=== PATIENT | female | born 1990 | race Caucasian/White ===

== ENCOUNTER 2016-09-14 13:00 | Inpatient (IN) | payer OTHER ==
[~2016-09-14] VITALS: Ht 172.7 cm; Wt 70.3 kg
--- NOTE | ~2016-09-14 | PA ---
Unit #: [id number] #: [id number] Patient: RONNELL ESTRADA [id number] [place] [address] [id number] MR#: [id number] NAME: RONNELL ESTRADA ROOM: [facility] Age: 26 Sex: F Admission Date: 09/14/2016 : 1990 Date of Assessment: 09/15/2016 Attending Physician: Chito Myers M.D. Admitting Physician: Chito Myers M.D. Primary Care Physician: Generic Doctor Not In System PSYCHIATRIC ASSESSMENT IDENTIFYING INFORMATION The patient is a 26-year-old white female admitted to the [address] [place] [address] for benzodiazepine and opioid detox. CHIEF COMPLAINT "Xanies and heroin." INFORMANT Patient, reliability is fair. HISTORY OF PRESENT ILLNESS The patient is a 26-year-old white female admitted to the [address] [place] [address] for opioid and benzodiazepine detox. The patient reports use of benzodiazepines since the age of 17 and has a 2-year history of heroin dependence. She reports occasional intravenous use. The patient reports that she was in treatment at the [facility] at one point but maintained sobriety finally 3 days after her discharge. The patient is currently here with her boyfriend who is on another unit and states that she hopes to continue followup in the intensive outpatient program following discharge. She denies current suicidal or homicidal ideation or recent changes in mood, sleep, or appetite. PAST PSYCHIATRIC HISTORY As above. PAST MEDICAL HISTORY The patient has been diagnosed with heart murmur, and there was concern that she may have endocarditis at some point. MEDICATIONS The patient had previously been prescribed Klonopin, gabapentin, and Suboxone, but has been off these medications for sometime. ALLERGIES Penicillin. FAMILY HISTORY Noncontributory. SOCIAL HISTORY The patient lives with her boyfriend who is also an addict. She reports substance use as noted previously. She is the mother of 2 [id number] children. She completed tenth grade. Unit #: [id number] #: [id number] Patient: RONNELL ESTRADA MENTAL STATUS EXAMINATION Examination at this time reveals the patient to be a well-developed well-nourished white female appearing her stated age. She is in no apparent physical distress at the time of examination. She is awake, alert, and oriented in all spheres. Her mood is mildly dysphoric, her affect constricted. Speech is generally well-coherent. There are no gross deficits in memory or cognition noted. Intelligence is judged to be in the average range based on fund of knowledge. The patient is cooperative throughout the interview. She is currently denying suicidal or homicidal ideation or psychotic features. Judgment and insight appear to be intact. ASSETS AND LIABILITIES The patient's assets: Motivation for change. Liabilities: Lack of resources. DIAGNOSTIC IMPRESSION 1. Opiate use disorder. 2. Sedative-hypnotic use disorder. TREATMENT PLAN The patient remains hospitalized for safety and stabilization. Routine detoxification protocol to cover both opioids and sedative hypnotics has been initiated. The patient is expressing interest in the intensive outpatient program with completion of detox. ESTIMATED LENGTH OF STAY 4 to 5 days. Dictated by... Chito Myers M.D. PABLO/janae TD: 09/15/2016 14:33 JOB #: [id number] PSYCHIATRIC ASSESSMENT Page 1 of 1 X Chito Myers MD X PSYCHIATRIC ASSESSMENT
--- NOTE | ~2016-09-14 | HP ---
Unit #: [id number] #: [id number] Patient: ESTRELLITA ESTRADA [id number] [place] [address] [id number] MR#: [id number] NAME: ESTRELLITA ESTRADA ROOM: [facility] Age: 26 Sex: F Admission Date: 09/14/2016 : 1990 Attending Physician: Chito Myers M.D. Admitting Physician: Chito Myers M.D. Primary Care Physician: Generic Doctor Not In System HISTORY AND PHYSICAL HISTORY OF PRESENT ILLNESS Estrellita is a 26 [address] [facility] because of her drug use. She snorts heroin. PAST MEDICAL HISTORY Long history of opioid abuse to include snorting heroin. PAST SURGICAL HISTORY Nothing reported. ALLERGIES Penicillin. SOCIAL HISTORY Smokes one pack per day. Denies alcohol. Admits to a long history of opioid abuse to include snorting heroin. FAMILY HISTORY Medically noncontributory. REVIEW OF SYSTEMS CONSTITUTIONAL: No fever or chills. HEENT: Denies any sore throat, ear pain or runny nose. CARDIOVASCULAR: Denies chest pain, irregular heart rhythm or palpitations. CHEST: Denies shortness of breath or cough. No hemoptysis. GASTROINTESTINAL: Denies nausea, vomiting, diarrhea or chronic constipation. ENDOCRINE: Denies history of increased thirst or urination. No recent significant weight loss or gain. GENITOURINARY: Denies dysuria, frequency, or hematuria. SKIN: Denies any rashes. HEMATOLOGIC: Denies history of increased bleeding or bruising. MUSCULOSKELETAL: Denies any hot, swollen joints. No generalized muscle pain. NEUROLOGIC: Denies problems with vision or speech. No frequent, severe headaches. No numbness, tingling or weakness in any extremities. Denies loss of bladder or bowel control. CURRENT MEDICATIONS Detox protocol PHYSICAL EXAMINATION Unit #: [id number] #: [id number] Patient: ESTRELLITA ESTRADA GENERAL: Alert, well-nourished, in no apparent distress. VITAL SIGNS: Blood pressure 115/66, heart rate 66, respirations 16, temperature 98.6. WEIGHT: 155 pounds. HEIGHT: 5 foot 8 inches. SKIN: Warm and dry without rash or lesion. HEENT: Normocephalic. TMs not viewed. Oral and nasal passages clear. Conjunctivae clear. Pupils equal, round and reactive to light and accommodation. Extraocular movements intact. NECK: Supple without lymphadenopathy or thyromegaly. HEART: Regular rate and rhythm without murmur. LUNGS: Clear. ABDOMEN: Soft, nontender. : Not done. EXTREMITIES: No evidence of cyanosis, clubbing or edema. Moves all extremities without focal deficit. NEUROLOGICAL: Grossly within normal limits. Cranial Nerves: II: Visual downey are intact. III, IV AND : Extraocular movements are intact. Pupils are equal, round and reactive to light. V: Facial sensation is grossly normal. VII: Facial movements and expression are normal. VIII: Auditory acuity grossly intact. IX, X: Uvula is midline. Phonation is normal. XI: Patient shrugs shoulders and turns head normally. XII: Tongue protrudes in the midline. Sensory and Motor Function: Sensory and motor sensation is grossly normal. Motor: moves all extremities well. Coordination: Gait is normal. Deep Tendon Reflexes: Intact. IMPRESSION Psychiatric admission RECOMMENDATIONS PSYCHIATRIC: Per psychiatrist. MEDICAL: I see no contraindications to participating in facility's activities. MEDICAL PROGNOSIS Good. MEDICAL CONDITION Stable. Dictated by... Twila Zhou P.A.-C. for Mian Lieberman/rad TD: 09/15/2016 01:54 JOB #: [id number] Unit #: [id number] #: [id number] Patient: ESTRELLITA ESTRADA HISTORY AND PHYSICAL Page 1 of 1 X Twila Zhou HISTORY AND PHYSICAL
--- NOTE | ~2016-09-14 | DS ---
Unit #: [id number] #: [id number] Patient: RONNELL ESTRADA [id number] [place] [address] [id number] MR#: [id number] NAME: RONNELL ESTRADA ROOM: [facility] Age: 26 Sex: F Admission Date: 09/14/2016 : 1990 Discharge Date: 09/16/2016 Attending Physician: Chito Myers M.D. Primary Care Physician: Generic Doctor Not In System DISCHARGE SUMMARY REASON FOR ADMISSION The patient is a 26-year-old single white female, admitted to the [facility] unit for opioid detox. HOSPITAL COURSE The patient was admitted to the [facility] unit, but transferred to various other units became necessary secondary to the patient having several boyfriends here in the hospital. Her stay in the hospital was a fairly uneventful one. Her detox going uneventfully. By 09/16/2016, she requested discharge and requested followup in the intensive outpatient program. Discharge was ordered. FINAL DIAGNOSIS Opioid use disorder. DISPOSITION ON DISCHARGE No psychotropic or other medications were ordered at the time of discharge. FOLLOWUP Followup will take place through the auspices of the intensive outpatient program provided by this facility. PROGNOSIS The patient's prognosis is fair. Dictated by... Chito Myers M.D. CB/xuanl TD: 09/17/2016 02:58 JOB #: [id number] Unit #: [id number] #: [id number] Patient: RONNELL ESTRADA DISCHARGE SUMMARY Page 1 of 1 X Chito Myers MD X DISCHARGE SUMMARY
[2016-09-15 09:56] LABS: BASOPHIL# 0.1 X10e3 (0-0.3); BASOPHIL% 0.9 % (0-2.5); EOSINOPHIL# 0.3 X10e3 (0-0.7); EOSINOPHIL% 3.3 % (0.0-7.0); HEMATOCRIT 40.8 % (35.0-45.0); LYMPHOCYTE# 2.3 X10e3 (1.0-3.5); LYMPHOCYTE% 30.4 % (17.0-45.0); MEAN CELL VOLUME 86.3 FL (83-96); MEAN CORPUSCULAR HEMOGLOBIN 29.7 PG (28-34); MEAN CORPUSCULAR HGB CONC 34.4 g/dL (30-36); MEAN PLATELET VOLUME 8.1 FL (6.5-11.5); MONOCYTE# 0.4 X10e3 (0-1.0); MONOCYTE% 5.6 % (3.0-12.0); NEUTROPHIL# 4.6 X10e3 (1.5-7.1); NEUTROPHIL% 59.8 % (40-75); PLATELET COUNT 207 X10e3 (140-420); RED BLOOD COUNT 4.73 X10e (3.90-5.30); RED CELL DISTRIBUTION WIDTH 13.4 % (11.0-15.5); WHITE BLOOD COUNT 7.6 X10e3 (4.0-10.5)
[2016-09-15 10:00] LABS: DIFF IND NO
[2016-09-15 10:37] LABS: ALBUMIN SERUM 4.2 g/dL (3.5-5.0); BILIRUBIN,TOTAL 0.3 mg/dL (0.2-2.0); BUN/CREATININE RATIO 13.33; CALCIUM SERUM 9.3 mg/dL (8.4-10.2); CREATININE SERUM 0.6 mg/dL (0.6-1.4); GLOM FILT RATE Estimated 126.7 mL/min (>60); POTASSIUM 3.9 mmol/L (3.5-5.1); PROTEIN TOTAL SERUM 6.7 g/dL (6.0-8.3)
[2016-09-16 09:46] LABS: URINE APPEARANCE CLEAR; URINE BILIRUBIN NEG (NEG); URINE BLOOD NEG (NEG); URINE COLOR YELLOW; URINE GLUCOSE NEG (NEG); URINE KETONE NEG (NEG); URINE LEUKOCYTE ESTERASE NEG (NEG); URINE NITRATE NEG (NEG); URINE PH 7.5 (5-8); URINE PROTEIN NEG (NEG); URINE SPECIFIC GRAVITY 1.015 (1.003-1.035)
[2016-09-16 10:30] LABS: AMPHETAMINE POS (NEG); BARBITURATES NEG (NEG); BENZODIAZEPINES POS (NEG); COCAINE NEG (NEG); MARIJUANA POS (NEG); OPIATES POS (NEG); TRICYCLIC ANTIDEPRESSANTS NEG (NEG); U METHADONE NEG (NEG)
== END 2016-09-16 14:05 | disposition home or self-care (01) | DRG 897 ==
LOC: P1E 16:16 → P2L 09-15 18:39
PROVIDERS: Specialist
PROC: HZ2ZZZZ Detoxification Services for Substance Abuse Treatment (ICD-10-PCS; principal; 2016-09-15)
DX: F11.10 Opioid abuse, uncomplicated (principal); F13.10 Sedative, hypnotic or anxiolytic abuse, uncomplicated; Z88.0 Allergy status to penicillin
CPT/HCPCS: 80053; 80307; 81003; 84703; 85025; 86592